=== PATIENT | female | born 1970 | race Caucasian/White ===

== ENCOUNTER 2018-03-22 14:35 | Emergency (ER) | payer OTHER ==
[~2018-03-22] VITALS: Ht 157.5 cm; Wt 93.9 kg
[~2018-03-22 14:35] MED LIST: ASPIR 8181 MG PO; FLEXERIL PO; LISINOPRIL20 MG PO; MOBIC15 MG PO
[2018-03-22] MEDS ORDERED: ESTRADIOL 1 MG T1 M1 PO (15:03)
[2018-03-22] MEDS ORDERED: ALLOPURINOL 10100 M1 PO (15:03)
[2018-03-22] MEDS ORDERED: HYDROCHLOROTHIA25 M2 PO (15:03)
[2018-03-22 15:28] LABS: ABSOLUTE NEUTROPHILS 3.6 thou/uL (1.4-8.2); BASOPHILS 0.7 % (0.0-2.0); EOSINOPHILS 3.5 % (0.0-3.0); HEMATOCRIT 40.5 % (37.0-47.0); HEMOGLOBIN 13.8 gm/dL (12.0-15.0); LYMPHOCYTES 34.2 % (24.0-44.0); MCH 31.1 pg (26.0-34.0); MCHC 34.2 g/dL (28.0-37.0); MONOCYTES 7.8 % (1.0-8.0); PLATELET COUNT 174 thou/uL (150-400); POLYS 53.8 % (36.0-66.0); RBC 4.45 mil/uL (4.20-5.00); RDW 13.2 % (10.5-14.5); WBC 6.6 thou/uL (4.0-11.0)
[2018-03-22 15:35] LABS: ANION GAP 8 mmol/L (7-16); BUN 11 mg/dL (7-18); CHLORIDE 102 mmol/L (98-107); CO2 31 mmol/L (21-32); CREATININE 0.9 mg/dL (0.6-1.0); GLUCOSE 98 mg/dL (74-106); POTASSIUM 3.6 mmol/L (3.5-5.1); SODIUM 141 mmol/L (136-145)
[2018-03-22 15:44] LABS: TROPONIN-I <0.06 ng/mL (<0.06)
--- NOTE | 2018-03-22 15:49 | EKG ---
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
[2018-03-22 17:50] VITALS: BP 132/52
== END 2018-03-22 17:50 | disposition home or self-care (01) ==
LOC: ER 14:35
PROVIDERS: Emergency Medicine
DX: R07.89 Other chest pain (principal); Z87.891 Personal history of nicotine dependence; Z88.7 Allergy status to serum and vaccine; Z88.2 Allergy status to sulfonamides; Z88.8 Allergy status to other drugs, medicaments and biological substances; Z88.1 Allergy status to other antibiotic agents; Z90.49 Acquired absence of other specified parts of digestive tract; Z90.710 Acquired absence of both cervix and uterus